=== PATIENT | male | born 1950 | race Two or more races ===

== ENCOUNTER 2016-10-27 11:15 | Emergency (ER) | payer OTHER ==
[2016-10-27 11:35] VITALS: BP 136/77; PULSE 98; TEMP 98.7; BMI 35.1
--- NOTE | 2016-10-27 12:31 | PDOC ---
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 is a 66 y/o male with a PMH of DM type II, HTN, HLD, asthma?, who presents with a chief complaint of cough. Pt. is a poor historian. 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 Pt. states his cough has been going on "for a long long time". He states his cough is productive and brings up sputum of different colors. Admits to sore throat and SOB with activity. Denies fevers, chills, ear ache, runny nose, post nasal drip. Pt. states he recieved antibiotics about 5 months ago but he stopped taking them because they made him vomit. Pt. 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 Past History - Past Medical History Allergies/Adverse Reactions: Allergies Allergy/AdvReac Type Severity Reaction Status Date / Time No Known Allergies Allergy Verified 10/27/16 11:31 Home Medications: Ambulatory Orders Albuterol Sulfate Inhaler - [Ventolin HFA Inhaler -] 1 - 2 inh PO Q4H #1 inhaler 10/27/16 Prednisone 20 mg PO BID #20 tab.ds.pk 10/27/16 Asthma: Yes HTN: Yes - Surgical History Appendectomy: Yes - Psycho/Social/Smoking Cessation Hx Suicidal Ideation: No Smoking History: Never smoked *Physical Exam - Vital Signs Last Vital Signs Temp Pulse Resp BP Pulse Ox 98.7 F 98 H 19 136/77 97 10/27/16 11:31 10/27/16 11:31 10/27/16 11:31 10/27/16 11:31 10/27/16 11:31 - Physical Exam Comments: 10/27/16 13:33 GENERAL: Well developed, well nourished. Awake and alert. No acute distress. HEENT: (+) chest cough. Normocephalic, atraumatic. PERRLA, EOMI. No conjunctival pallor. Sclera are non-icteric. Moist mucous membranes. Oropharynx is clear. NECK: Supple. Full ROM. No JVD. Carotid pulses 2+ and symmetric, without bruits. No thyromegaly. No lymphadenopathy. CARDIOVASCULAR: Distant heart sounds. Regular rate and rhythm. No murmurs, rubs, or gallops. Distal pulses are 2+ and symmetric. PULMONARY: Scattered expiratory wheezing B/L. No rales or rhonchi. Not using accessory muscles to breathe. Medical Decision Making - Medical Decision Making 10/27/16 14:43 Pt is a 66 y/o male with cough for approximately one month. Will treat with duoneb and order x-ray as pt. is a poor historian. 10/27/16 15:16 X-ray shows no acute cardiopulmonary disease; 7mm calcified nodule seen on the RLL; will need CT follow-up as out patient. Dr. Cruz is his PCP. Was made aware of the lung nodule. His phone number is . Report of the x- ray was faxed to his office. Pt. most likely has a chronic bronchitis. Wheezing improved after duoneb. Prescribed albuterol and prednisone. Pt. understands to take all the medication as prescribed and understands all discharge instructions. All questions were answered. *DC/Admit/Observation/Transfer Diagnosis at time of Disposition: Lung nodule Chronic bronchitis Qualifiers: Chronic bronchitis type: unspecified Qualified Code(s): J42 - Unspecified chronic bronchitis - Prescriptions Prescriptions: Prednisone 20 mg PO BID #20 tab.ds.pk Albuterol Sulfate Inhaler - [Ventolin HFA Inhaler -] 1 - 2 inh PO Q4H #1 inhaler - Referrals Referrals: Obey Cruz MD [Primary Care Provider] - Sheldon Ogden MD [Staff Physician] - - Patient Instructions Printed Discharge Instructions: DI for Chronic Bronchitis Additional Instructions: Tiene bronquitis. Lam radiografa mostr mary anomala. Necesita nanette a lam mdico de cabecera Dr. Cruz en mary semana. Tiene mary copia del informe. Tiene mary receta para un inhalador y prednisona en la farmacia. [place] la medicacin segn lo prescrito. Si no puede respirar, tiene fiebre o escalofros, regrese al servicio de urgencias Print Language: FAROESE
[2016-10-27] MEDS ORDERED: ALBUTEROL SO4 2.5/IPRATROPIUM 0.5 INH SOL 3 ML VIAL.NEB. NEB ONE ×2 (12:59→13:08)
== END 2016-10-27 14:40 | disposition home or self-care (01) ==
LOC: JERFT 11:15
PROC: 3E0F7GC Introduction of Other Therapeutic Substance into Respiratory Tract, Via Natural or Artificial Opening (ICD-10-PCS; principal; 2016-10-27)
DX: R91.1 Solitary pulmonary nodule (principal); J42 Unspecified chronic bronchitis; E11.9 Type 2 diabetes mellitus without complications; I10 Essential (primary) hypertension; E78.5 Hyperlipidemia, unspecified
CPT/HCPCS: 71020-TC; 99281-25